=== PATIENT | female | born 1940 | race Caucasian/White ===

== ENCOUNTER 2021-03-26 13:58 | Emergency (ER) | payer OTHER ==
[~2021-03-26] VITALS: Ht 162.6 cm; Wt 68.0 kg
[~2021-03-26 13:58] MED LIST: ACIDOPHILUS1 EAC2 PO; ALL DAY ALLERGY10 M2 PO; AMLODIPINE BESYL5 MG PO; AMLODIPINE PO; B/P MED; BENAZEPRIL HCL10 MG PO; CHOLESTEROL PILL; CLARITIN10 MG PO; I-CAPS AREDS S1 EACH PO; LISINOPRIL PO; LISINOPRIL2.5 MG; LOSARTAN-HCTZ1 EAC3 PO; MEGARED PLANT-300 MG PO; MULTIVITAMINS1 EAC7 PO; NORCO 5-325 TA1 EACH PO; POTASSIUM; POTASSIUM99 M2 PO; PRILOSEC 10MG C10 M1 PO; TUMS X-STR300 MG PO; VITAMIN; WATER PILL; [UNRECOGNIZED DRUG - REMARK]
[2021-03-26] MEDS ORDERED: STOMACH PILL PO (14:15)
[2021-03-26] MEDS ORDERED: BLOOD PRESSURE PILL PO (14:15)
[2021-03-26] MEDS ORDERED: BLOOD PRESSURE PO (14:15)
[2021-03-26] MEDS ORDERED: ANUSOL-HC30 GM TOP (14:33)
[2021-03-26] MEDS ORDERED: NORCO5 PO (14:33)
[2021-03-26] MEDS ORDERED: ZOFRAN ODT4 MG PO (14:33)
[2021-03-26] MEDS ORDERED: COLACE100 MG PO (14:34)
[2021-03-26 15:20] VITALS: BP 158/83
== END 2021-03-26 15:21 | disposition home or self-care (01) ==
LOC: M.ERS 13:58
DX: K64.4 Residual hemorrhoidal skin tags (principal); R19.7 Diarrhea, unspecified; I10 Essential (primary) hypertension; E78.00 Pure hypercholesterolemia, unspecified; Z79.899 Other long term (current) drug therapy; Z88.2 Allergy status to sulfonamides